=== PATIENT | male | born 1950 | race African-American/Black ===

== ENCOUNTER 2016-07-07 08:39 | Emergency (ER) | payer MEDICARE ==
[2016-07-07 09:50] LABS: BASOPHILS 0.1 % (0.0-2.0); EOSINOPHILS 0 % (0-7); HEMATOCRIT 38.9 % (42.0-54.0); HEMOGLOBIN 12.9 g/dL (13.5-17.5); IMMATURE GRANULOCYTES 0.3 % (0-5); MCH 29.9 pg (26.0-34.0); MCHC 33.2 g/dL (31.0-37.0); MCV 90.3 fL (80.0-100.0); MEAN PLATELET VOLUME 10.7 fL (7.4-10.4); MONOCYTES 7.7 % (2-11); NEUTROPHILS 73.9 % (40-80); PLATELET COUNT 161 10x3/uL (130-400); RBC 4.31 10x6/uL (4.20-6.10); RDW 14.4 % (11.5-14.5)
[2016-07-07 09:54] LABS: ANION GAP 12.7 mmol/L (8-16); CALCIUM 9.1 mg/dL (8.5-10.1); CREATININE - SERUM 1.4 mg/dL (0.6-1.3); POTASSIUM - SERUM 3.7 mmol/L (3.5-5.1); URIC ACID 7.3 mg/dL (2.6-7.2)
[2016-07-07 11:59] LABS: LYMPH - BF 8 %; MACROPHAGES BF 3 %; NEUT - BF 89 %
[2016-07-31] MEDS ORDERED: BACTRIM DS TABL1 TAB PO (15:39)
== END 2016-07-07 11:13 | disposition home or self-care (01) ==
LOC: D.ER 08:39
PROVIDERS: Emergency Medicine
DX: M25.562 Pain in left knee (principal); M17.12 Unilateral primary osteoarthritis, left knee; M25.462 Effusion, left knee; E79.0 Hyperuricemia without signs of inflammatory arthritis and tophaceous disease

== ENCOUNTER 2016-08-01 07:00 | Day surgery (SDC) | payer MEDICARE ==
[2016-07-31 16:39] LABS: HEMATOCRIT 40.4 % (42.0-54.0); HEMOGLOBIN 13.6 g/dL (13.5-17.5); MCH 30.2 pg (26.0-34.0); MCHC 33.7 g/dL (31.0-37.0); MCV 89.8 fL (80.0-100.0); MEAN PLATELET VOLUME 10.8 fL (7.4-10.4); RBC 4.5 10x6/uL (4.20-6.10); RDW 14.4 % (11.5-14.5); WBC 7.3 10x3/uL (4.8-10.8)
[~2016-08-01] VITALS: Ht 170.2 cm; Wt 87.5 kg
[~2016-08-01 07:00] MED LIST: BACTRIM DS TABL1 TAB PO
[2016-08-01 07:46] VITALS: BP 133/73; Ht 170.2 cm; Wt 87.5 kg
--- NOTE | 2016-08-01 09:58 | NUR ---
PATIENTS ARM DOWN BY SIDE, ULTRASOUND MACHINE USED BY CYNTHIA BARRERA CRAB BACKER.
--- NOTE | 2016-08-02 16:50 | OP ---
PATIENT NAME: LAURE LOPEZ CUNEY MEDICAL RECORD: [id number] :50 LOCATION:[facility] ADMISSION DATE: SURGEON: ELLIOTT NETTLES MD DATE OF OPERATION: 08/01/2016 SURGEON: Elliott Nettles MD. ANESTHESIA: MAC by Dr. Yoder. PREOPERATIVE DIAGNOSIS: Elevated PSA of 3.9 with 6.9% free PSA. PROCEDURE: Transrectal ultrasound of the prostate, biopsy of the prostate with greater than 12 cores. FINDINGS: A 17 mL prostate volume, no hypoechoic areas. BLOOD LOSS: Minimal CLINICAL HISTORY: This is a 66-year-old black male, who has a positive family history of prostate cancer. His PSA is on the borderline at 3.9. His free PSA is extremely low at 6.9%. By the nomograms, he has 55% chance of having prostate cancer on statistical basis alone. Rectal examination revealed a small prostate with no palpable abnormalities. He comes now to have transrectal ultrasound and prostate biopsy performed. He was given Bactrim, which he started taking 2 days ago. He also had a Fleet Enema the night prior to this procedure. Today, we also added IV cefuroxime and gentamicin to prevent infection. DESCRIPTION OF PROCEDURE: The patient was given IV sedation. We then placed him into dorsal lithotomy position and prepped him. The transrectal ultrasound probe was introduced and the prostatic length, width and depth were recorded and the computer gave us a 17 mL prostatic volume. We divided the prostate into 6 sectors. There were 3 sectors on each side. The sectors were the base, mid and apex. Starting at the left apex, we took 2 cores and in each sector, we took 2 cores. In total, we took over 12 cores as some areas required repeated sampling as our cores were sometimes were very small in terms of number in the amount of tissue obtained. Once sufficient material had been obtained, we then removed the probe and the patient was brought to the recovery room. I will see him in followup next week to review the results with him. TRANSINT:[id number] Voice Confirmation ID: [id number] DOCUMENT ID: [id number] ELLIOTT NETTLES MD at 1650 CC: [id number] DICTATION DATE: 08/01/16 1020 ALLEY WORKER: 08/01/16 1210 [facility] 08/01/[address] [facility] [address] [facility] [place] [address]
== END 2016-08-01 11:45 | disposition home or self-care (01) ==
LOC: D.OPS 07:00 → D.PAN 11:15 → D.OPS 11:45
PROVIDERS: Anesthesiology
DX: N40.0 Benign prostatic hyperplasia without lower urinary tract symptoms (principal); R97.20 Elevated prostate specific antigen [PSA]; Z80.42 Family history of malignant neoplasm of prostate; Z79.2 Long term (current) use of antibiotics

== ENCOUNTER → 2017-02-03 08:17 | Outpatient (CLI) | payer MEDICARE ==
[2016-08-01 07:46] VITALS: BMI 30.3
[2017-02-04 12:15] LABS: PSA - % FREE 6.4 % (()); PSA - FREE 0.27 ng/mL; PSA - TOTAL 4.2 ng/mL (0.0-4.0)
== END | disposition home or self-care (01) ==
LOC: D.LAB 08:17
PROVIDERS: Urology
DX: R97.20 Elevated prostate specific antigen [PSA] (principal)